=== PATIENT | male | born 1955 | race Caucasian/White ===

== ENCOUNTER 2020-11-23 09:50 | Emergency (ER) | payer MEDICARE ==
[~2020-11-23] VITALS: Ht 170.2 cm; Wt 60.5 kg
[2020-11-23 09:57] VITALS: BP 136/42; Ht 170.2 cm; Wt 60.5 kg
[2020-11-23] MEDS ORDERED: POTASSIUM CHLOR8 ME1 PO (09:59)
[2020-11-23] MEDS ORDERED: PACERONE100 MG PO (09:59)
[2020-11-23] MEDS ORDERED: COREG6.25 MG PO (10:00)
[2020-11-23] MEDS ORDERED: JANTOVEN3 MG PO ×2 (10:01→10:02)
[2020-11-23] MEDS ORDERED: FUROSEMIDE20 MG PO (10:03)
[2020-11-23] MEDS ORDERED: TRELEGY ELLIPT1 EACH INH ×2 (10:03→11:45)
[2020-11-23 10:51] LABS: ANION GAP 13.2 mmol/L (8-16); APTT 73.7 SECONDS (22.8-39.4); CALCIUM 8.6 mg/dL (8.5-10.1); CARBON DIOXIDE 26.2 mmol/L (21.0-32.0); CREATININE - SERUM 2.2 mg/dL (0.6-1.3); POTASSIUM - SERUM 4.4 mmol/L (3.5-5.1)
[2020-11-23 10:57] LABS: HEMOGLOBIN 9.7 g/dL (13.5-17.5); WBC 4.9 10x3/uL (4.8-10.8)
[2020-11-23 10:59] LABS: MONOCYTES 9.4 % (2-11); PLATELET COUNT 99 10x3/uL (130-400); PROTIME 47.5 SECONDS (11.6-15.0)
[2020-11-23 11:02] LABS: INR 5.62 (0.85-1.17)
[2020-11-23 11:04] LABS: ALBUMIN 3.4 g/dL (3.4-5.0); BASOPHILS 1.3 % (0-2); BILIRUBIN - TOTAL 2.02 mg/dL (0.2-1.3); EOSINOPHILS 5.6 % (0-7); HEMATOCRIT 28.9 % (42.0-54.0); LYMPHOCYTES 5.9 % (15-50); MCH 32.8 pg (26.0-34.0); MCHC 33.6 g/dL (31.0-37.0); MCV 97.6 fL (80.0-100.0); MEAN PLATELET VOLUME 8.3 fL (7.4-10.4); NEUTROPHILS 77.8 % (40-80); PROTEIN - SERUM 7.9 g/dL (6.4-8.2); RBC 2.96 10x6/uL (4.20-6.10); RDW 16.4 % (11.5-14.5)
[2020-11-23] MEDS ORDERED: AUGMENTIN 875-11 TAB PO (11:40)
[2020-11-23 15:07] LABS: PLATELET ESTIMATE DECREASED
== END 2020-11-23 12:17 | disposition home or self-care (01) ==
LOC: D.ER 09:50
PROVIDERS: Emergency Medicine
DX: S41.151A Open bite of right upper arm, initial encounter (principal); W55.01XA Bitten by cat, initial encounter; Y93.9 Activity, unspecified; Y92.9 Unspecified place or not applicable; J44.9 Chronic obstructive pulmonary disease, unspecified; Z79.01 Long term (current) use of anticoagulants